=== PATIENT | male | born 1975 | race Caucasian/White ===

== ENCOUNTER 2019-04-16 13:34 | Emergency (ER) | payer BC, OTHER ==
[~2019-04-16] VITALS: Ht 172.7 cm; Wt 116.4 kg
[~2019-04-16 13:34] MED LIST: ASPI81TA28 PO; AUGM875T28 PO; IBUP-1114 PO; OMEP20CA3 PO; PERC5TAB12 PO; VITMTA PO
[2019-04-16] MEDS ORDERED: METF500T4 (14:55)
[2019-04-16 17:14] VITALS: BP 118/70
== END 2019-04-16 17:00 | disposition home or self-care (01) ==
LOC: M ED 13:34
DX: Z77.098 Contact with and (suspected) exposure to other hazardous, chiefly nonmedicinal, chemicals (principal); Y92.149 Unspecified place in prison as the place of occurrence of the external cause; Y93.9 Activity, unspecified; Y99.0 Civilian activity done for income or pay; K21.9 Gastro-esophageal reflux disease without esophagitis; G47.30 Sleep apnea, unspecified; Z79.84 Long term (current) use of oral hypoglycemic drugs; Z79.899 Other long term (current) drug therapy

== ENCOUNTER 2022-10-12 15:41 | Emergency (ER) | payer BC, OTHER ==
[~2022-10-12] VITALS: Ht 172.7 cm; Wt 122.7 kg
[~2022-10-12 15:41] MED LIST changes: +METF-838; +OMEP1CAP73 PO; -OMEP20CA3 PO
[2022-10-12] MEDS ORDERED: GABAPENTIN 300 MG CAP PO ONE (20:10)
[2022-10-12] MEDS ORDERED: CYCLOBENZAPRINE 5MG TABLET PO ONE (20:10)
[2022-10-12] MEDS ORDERED: KETOROLAC 60MG 2ML VIAL IM ONE (20:10)
[2022-10-12] MEDS ORDERED: LIDOCAINE 5% (LIDODERM) PATCH TD ONE (20:10)
[2022-10-12] MEDS ORDERED: NEUR300C PO (23:09)
[2022-10-12] MEDS ORDERED: NAPR-837 PO (23:09)
[2022-10-12] MEDS ORDERED: CYCL-707 PO (23:09)
[2022-10-12] MEDS ORDERED: LIDO5DIS41 TD (23:09)
[2022-10-12 23:38] VITALS: BP 127/81
== END 2022-10-12 23:41 | disposition home or self-care (01) ==
LOC: M ED 18:54
DX: M54.16 Radiculopathy, lumbar region (principal); E11.9 Type 2 diabetes mellitus without complications; K21.9 Gastro-esophageal reflux disease without esophagitis; G47.33 Obstructive sleep apnea (adult) (pediatric); Z88.5 Allergy status to narcotic agent; Z88.6 Allergy status to analgesic agent; Z79.84 Long term (current) use of oral hypoglycemic drugs; Z79.899 Other long term (current) drug therapy
CPT/HCPCS: 72100; 73502; 81002; 96372; 99284; J1885

== ENCOUNTER → 2022-10-22 | Outpatient (CLI) | payer BC, OTHER ==
[~2022-10-22] MED LIST changes: +CYCL-707 PO; +LIDO5DIS41 TD; +NAPR-837 PO; +NEUR300C PO
[2022-10-22 09:04] LABS: CARBON DIOXIDE LEVEL 30 MMOL/L (20-31); CHLORIDE LEVEL 100 MMOL/L (98-107); POTASSIUM SERUM 4.4 MMOL/L (3.5-5.1); SODIUM LEVEL 139 MMOL/L (136-145)
[2022-10-22 09:10] LABS: CALCIUM LEVEL 9.4 MG/DL (8.5-10.1)
[2022-10-22 09:11] LABS: BLOOD UREA NITROGEN 21 MG/DL (9-23); GLUCOSE, FASTING 143 MG/DL (60-100)
[2022-10-22 09:13] LABS: CREATININE FOR GFR 1.01 MG/DL (0.70-1.30); GLOMERULAR FILTRATION RATE > 60.0 (>60)
== END ==
LOC: M EKG 07:29
PROVIDERS: ATTEND Orthopaedic Surgery
DX: M93.1 Kienbock's disease of adults (principal)

== ENCOUNTER → 2022-11-03 | Outpatient (CLI) | payer BC, OTHER | LOC: M LABSMTC 10:33 | PROVIDERS: ATTEND Orthopaedic Surgery | DX: Z01.812 Encounter for preprocedural laboratory examination (principal); Z20.822 Contact with and (suspected) exposure to COVID-19 ==

== ENCOUNTER 2025-07-02 06:51 | Emergency (ER) | payer BC, OTHER ==
[~2025-07-02] VITALS: Ht 172.7 cm; Wt 114.0 kg
[~2025-07-02 06:51] MED LIST changes: +LIDO1ADH93 TD; -LIDO5DIS41 TD
[2025-07-02 06:56] VITALS: BP 142/86; TEMP 97.8; O2SAT 96
[2025-07-02] MEDS ORDERED: TIRZ7.5P (07:02)
[2025-07-02] MEDS ORDERED: META-10 (07:02)
== END 2025-07-02 07:30 | disposition left against medical advice (07) ==
LOC: M ED 06:51
DX: Z53.21 Procedure and treatment not carried out due to patient leaving prior to being seen by health care provider (principal)

== ENCOUNTER 2025-07-03 23:49 | Emergency (ER) | payer BC ==
[~2025-07-03] VITALS: Ht 172.7 cm; Wt 115.8 kg
[~2025-07-03 23:49] MED LIST changes: +META-10; +TIRZ7.5P
[2025-07-04 02:00] VITALS: TEMP 98.2
[2025-07-04] MEDS: predniSONE 20 MG TAB PO ONE (03:25)
[2025-07-04] MEDS ORDERED: MEDR4PAK PO (03:26)
[2025-07-04] MEDS ORDERED: VALI5TAB PO (03:26)
[2025-07-04 03:40] VITALS: BP 146/79; O2SAT 98
== END 2025-07-04 03:42 | disposition home or self-care (01) ==
LOC: M ED 23:49
DX: M54.12 Radiculopathy, cervical region (principal); M48.02 Spinal stenosis, cervical region; M48.03 Spinal stenosis, cervicothoracic region; E11.9 Type 2 diabetes mellitus without complications; G43.909 Migraine, unspecified, not intractable, without status migrainosus; G47.33 Obstructive sleep apnea (adult) (pediatric); Z88.6 Allergy status to analgesic agent; Z88.5 Allergy status to narcotic agent; Z79.899 Other long term (current) drug therapy
CPT/HCPCS: 72125; 99284; J7512

== ENCOUNTER 2025-07-06 14:17 | Emergency (ER) | payer BC ==
[~2025-07-06] VITALS: Ht 172.7 cm; Wt 116.1 kg
[~2025-07-06 14:17] MED LIST changes: +MEDR4PAK PO; +VALI5TAB PO
[2025-07-06] MEDS ORDERED: TADA10TA (14:26)
[2025-07-06] MEDS ORDERED: KETO-204 PO (23:19)
[2025-07-06 23:34] VITALS: BP 161/89; TEMP 96.9; O2SAT 96
== END 2025-07-06 23:36 | disposition home or self-care (01) ==
LOC: M ED 14:17
DX: M25.511 Pain in right shoulder (principal); M50.21 Other cervical disc displacement, high cervical region; M50.221 Other cervical disc displacement at C4-C5 level; M50.222 Other cervical disc displacement at C5-C6 level; M50.223 Other cervical disc displacement at C6-C7 level; M48.02 Spinal stenosis, cervical region; E11.9 Type 2 diabetes mellitus without complications; Z88.5 Allergy status to narcotic agent; Z88.6 Allergy status to analgesic agent; Z91.030 Bee allergy status; Z79.899 Other long term (current) drug therapy

== ENCOUNTER → 2025-08-29 | Outpatient (CLI) | payer BC ==
[~2025-08-29] MED LIST changes: +KETO-204 PO; +TADA10TA
== END ==
LOC: M RAD 06:57
PROVIDERS: ATTEND Nurse Practitioner Family
DX: M25.511 Pain in right shoulder (principal); M75.101 Unspecified rotator cuff tear or rupture of right shoulder, not specified as traumatic; M75.81 Other shoulder lesions, right shoulder